=== PATIENT | male | born 1940 ===

== ENCOUNTER → 2024-08-30 | Outpatient (CLI) | payer OTHER | END | disposition home or self-care (01) | LOC: SHCH 10:50 | PROVIDERS: ATTEND Internal Medicine Cardiovascular Disease | DX: I08.3 Combined rheumatic disorders of mitral, aortic and tricuspid valves (principal); I48.0 Paroxysmal atrial fibrillation; I48.92 Unspecified atrial flutter | CPT/HCPCS: 93306 ==